=== PATIENT | female | born 1965 ===

== ENCOUNTER 2017-12-26 22:12 | Observation (INO) | payer OTHER ==
--- NOTE | 2017-12-26 23:03 | ED PDOC ---
Arrival/HPI - General Chief Complaint: Shortness Of Breath Time Seen by Provider: 12/26/17 22:32 Historian: Patient - History of Present Illness Narrative History of Present Illness (Text): 12/26/17 22:44 52 year old female, with past medical history of hypertension and diabetes mellitus, presents to the Emergency department complaining of a transient episode of chest tightness associated with mild shortness of breath earlier this evening. Patient states similar symptoms many years ago which resolved spontaneously. 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 Patient currently denies any chest pain or shortness of breath. Patient denies any fever, chills, nausea, vomiting , diarrhea, abdominal pain, cough or any other complaints. Patient denies smoking cigarettes but informs family history of cardiac disease. Time/Duration: 1-3 hours Symptom Onset: Gradual Symptom Course: Resolved Quality: Tightness Activities at Onset: Light Context: Home Past Medical History - Provider Review Nursing Documentation Reviewed: Yes - Reproductive Menopause: Yes Family/Social History - Physician Review Nursing Documentation Reviewed: Yes Family/Social History: No Known Family HX Allergies/Home Meds Allergies/Adverse Reactions: Allergies No Known Allergies Allergy (Verified 12/26/17 22:35) Home Medications: Home Meds Medication Instructions Recorded Confirmed Aspirin [Aspirin Chewable] 81 mg PO DAILY 12/26/17 12/27/17 Losartan [Cozaar] 25 mg PO DAILY 12/26/17 12/27/17 Metformin HCl [Glucophage] 1,000 mg PO BID 12/26/17 12/27/17 amLODIPine [Norvasc] 5 mg PO DAILY 12/26/17 12/27/17 Simvastatin [Zocor] 20 mg PO DAILY 12/27/17 12/27/17 Review of Systems - Physician Review All systems were reviewed & negative as marked: Yes - Review of Systems Constitutional: Normal. absent: Fevers Eyes: Normal ENT: Normal Respiratory: SOB. absent: Cough Cardiovascular: Chest Pain Gastrointestinal: Normal. absent: Abdominal Pain, Diarrhea, Nausea, Vomiting Genitourinary Female: Normal Musculoskeletal: Normal Skin: Normal Neurological: Normal Endocrine: Normal Hemo/Lymphatic: Normal Psychiatric: Normal Physical Exam Vital Signs Reviewed: Yes Vital Signs Temp Pulse Resp BP Pulse Ox 12/27/17 01:42 83 19 141/89 97 12/26/17 23:49 21 12/26/17 22:36 98.7 F 95 H 20 155/91 H 98 Temperature: Afebrile Blood Pressure: Hypertensive Pulse: Tachycardic Respiratory Rate: Normal Appearance: Positive for: Well-Appearing, Non-Toxic, Comfortable Pain Distress: None Mental Status: Positive for: Alert and Oriented X 3 - Systems Exam Head: Present: Atraumatic, Normocephalic Pupils: Present: PERRL Extroacular Muscles: Present: EOMI Conjunctiva: Present: Normal Mouth: Present: Moist Mucous Membranes Neck: Present: Normal Range of Motion Respiratory/Chest: Present: Clear to Auscultation, Good Air Exchange. No: Respiratory Distress, Accessory Muscle Use Cardiovascular: Present: Regular Rate and Rhythm, Normal S1, S2. No: Murmurs Abdomen: No: Tenderness, Distention, Peritoneal Signs Back: Present: Normal Inspection Upper Extremity: Present: Normal Inspection. No: Cyanosis, Edema Lower Extremity: Present: Normal Inspection. No: Edema, CALF TENDERNESS, Romaine' s Sign, Tenderness Neurological: Present: GCS=15, CN II-XII Intact, Speech Normal Skin: Present: Warm, Dry, Normal Color. No: Rashes Psychiatric: Present: Alert, Oriented x 3, Normal Insight, Normal Concentration Medical Decision Making ED Course and Treatment: 12/26/17 22:44 Impression: 52 year old female presents to the Emergency department complaining of transient episode of chest tightness associated with slight shortness of breath. Plan: -- EKG -- Labs -- Chest X-ray -- Reassess and disposition Prior Visits: Notes and results from previous visits were reviewed. Progress Notes: 12/27/17 00:57 Chest X-ray reviewed, shows no acute processes. 12/27/17 01:09 EKG: Ordered, reviewed, and independently interpreted the EKG. Rate : 75 BPM Rhythm : NSR Interpretation : No ST-segment elevations or depressions, no T-wave inversions, normal intervals. 12/27/17 02:[address] Ortega, who is aware and agrees with Emergency department management plan, accepts patient under her service. - Lab Interpretations Lab Results: 12/26/17 23:11 12/26/17 23:11 Lab Results 12/26/17 23:11: WBC 10.4, RBC 3.95, Hgb 11.8 L, Hct 34.9 L, MCV 88.4, MCH 29.9, MCHC 33.8, RDW 14.3, Plt Count 408, MPV 9.6 12/26/17 23:11: Sodium 141, Potassium 4.3, Chloride 102, Carbon Dioxide 27, Anion Gap 17, BUN 14, Creatinine 0.5 L, Est GFR ( Amer) > 60, Est GFR ( Non-Af Amer) > 60, Random Glucose 255 H, Calcium 9.8, Total Bilirubin 0.5, AST 30, ALT 34, Alkaline Phosphatase 67, Lactate Dehydrogenase 361, Total Creatine Kinase 40, Troponin I < 0.01, Total Protein 7.8, Albumin 4.2, Globulin 3.6, Albumin/Globulin Ratio 1.2 12/26/17 23:11: PT 11.9, INR 1.04, APTT 32.2 - RAD Interpretation Radiology Orders: 12/26/17 22:44 CHEST PORTABLE [RAD] Stat - Medication Orders Current Medication Orders: Discontinued Medications Albuterol/Ipratropium (Duoneb 3 Mg/0.5 Mg (3 Ml) Ud) 3 ml [facility]H [id number] Last Admin: 12/27/17 11:33 Dose: 3 ml Amlodipine Besylate (Norvasc) 5 mg PO DAILY [facility] Last Admin: 12/27/17 11:17 Dose: 5 mg MAR Pulse and Blood Pressure Document 12/27/17 11:17 [facility] (Rec: 12/27/17 11:17 [facility] [id number]) Pulse Pulse Rate (60-90) 97 Blood Pressure Blood Pressure (100/60-150/90) 128/78 Aspirin (Aspirin) 325 mg PO ONCE STA Stop: 12/27/17 02:17 Last Admin: 12/27/17 03:28 Dose: 325 mg Aspirin (Aspirin Chewable) 81 mg PO DAILY [facility] Last Admin: 12/27/17 11:17 Dose: 81 mg Atorvastatin Calcium (Lipitor) 10 mg PO DIN [facility] Last Admin: 12/27/17 17:48 Dose: 10 mg Enoxaparin Sodium (Lovenox) 40 mg SC DAILY [facility] PRN Reason: Protocol Last Admin: 12/27/17 15:19 Dose: 40 mg Subcutaneous Administrations Document 12/27/17 15:19 [facility] (Rec: 12/27/17 15:19 [facility] [id number]) Injection Site MAR Injection Site Right Abdomen Charges for Administration # of Subcutaneous Administrations 1 Famotidine (Pepcid) 40 mg PO HS [facility] Insulin Human Regular (Humulin R Low) 0 units SC ACHS [facility] PRN Reason: Protocol Last Admin: 12/27/17 17:51 Dose: Not Given Non-Admin Reason: Blood Sugar Parameter MAR Blood Glucose Document 12/27/17 17:51 [facility] (Rec: 12/27/17 17:51 [facility] [id number]) Blood Glucose Finger Stick Blood Glucose (70-120) 185 Losartan Potassium (Cozaar) 25 mg PO DAILY [facility] Last Admin: 12/27/17 11:16 Dose: 25 mg MAR Pulse and Blood Pressure Document 12/27/17 11:16 [facility] (Rec: 12/27/17 11:16 [facility] [id number]) Pulse Pulse Rate (60-90) 97 Blood Pressure Blood Pressure (100/60-150/90) 128/78 Metformin HCl (Glucophage) 1,000 mg PO BID [facility] Last Admin: 12/27/17 17:49 Dose: 1,000 mg Methylprednisolone (Solu-Medrol) 20 mg IVP Q12 [facility] Last Admin: 12/27/17 15:31 Dose: 20 mg IVP Administration Document 12/27/17 15:31 [facility] (Rec: 12/27/17 15:31 [id number] Charges for Administration # of IVP Administrations 1 Non-Formulary Medication (Simvastatin [Zocor]) 20 mg PO DAILY [facility] - Scribe Statement The provider has reviewed the documentation as recorded by the Scribe Seymour Don. All medical record entries made by the Ebenibnikolay were at my direction and personally dictated by me. I have reviewed the chart and agree that the record accurately reflects my personal performance of the history, physical exam, medical decision making, and the department course for this patient. I have also personally directed, reviewed, and agree with the discharge instructions and disposition. Disposition/Present on Arrival - Present on Arrival Any Indicators Present on Arrival: No History of DVT/PE: No History of Uncontrolled Diabetes: Yes Urinary Catheter: No History of Decub. Ulcer: No History Surgical Site Infection Following: None - Disposition Have Diagnosis and Disposition been Completed?: Yes Diagnosis: Chest pain Disposition: HOSPITALIZED Disposition Time: :17 Patient Plan: Observation Condition: STABLE
[2017-12-26 23:21] LABS: HEMOGLOBIN 11.8 g/dL (12.0-16.0); MEAN CELL VOLUME 88.4 fl (80.0-105.0); MEAN CORPUSCULAR HEMOGLOBIN 29.9 pg (25.0-35.0); MEAN CORPUSCULAR HGB CONC 33.8 g/dl (31.0-37.0); MEAN PLATELET VOLUME 9.6 fl (7.0-11.0); RBC 3.95 10^6/uL (3.5-6.1); RED CELL DISTRIBUTION WIDTH 14.3 % (11.5-14.5); WHITE BLOOD COUNT 10.4 10^3/ul (4.5-11.0)
[2017-12-26 23:32] LABS: ALB/GLOB RATIO 1.2 (1.1-1.8); ALBUMIN 4.2 g/dL (3.0-4.8); CALCIUM 9.8 mg/dL (8.4-10.5); GFR AFRICAN-AMERICAN > 60; GFR NON-AFRICAN AMERICAN > 60
[2017-12-26 23:38] LABS: ALT/SGPT 34 U/L (7-56); AST/SGOT 30 U/L (14-36); BLOOD UREA NITROGEN 14 mg/dL (7-21)
[2017-12-26 23:39] LABS: INR 1.04 (0.93-1.08); PARTIAL THROMBOPLASTIN TIME 32.2 Seconds (25.1-36.5); PROTHROMBIN TIME 11.9 SECONDS (9.4-12.5)
[2017-12-26 23:43] LABS: TROPONIN I < 0.01 ng/mL
[2017-12-27 03:55] VITALS: O2SAT 99
[2017-12-27 04:35] VITALS: BMI 51.3
[2017-12-27 07:15] LABS: TROPONIN I < 0.01 ng/mL
[2017-12-27] MEDS: Insulin Reg-LOW-Coverage SC SCH ×3 (08:37→17:51)
--- NOTE | 2017-12-27 08:56 | RAD ---
HISTORY: chest pain COMPARISON: No prior. FINDINGS: LUNGS: No active pulmonary disease. PLEURA: No significant pleural effusion identified, no pneumothorax apparent. CARDIOVASCULAR: Mild pulmonary vascular congestion difficult to exclude. There is underpenetration related to body habitus. Limited cardiomegaly not completely excluded. OSSEOUS STRUCTURES: No significant abnormalities. VISUALIZED UPPER ABDOMEN: Normal. OTHER FINDINGS: None. IMPRESSION: Limited cardiomegaly not completely excluded. Limited pulmonary vascular congestion also not definitively excluded though the study is underpenetrated due to body habitus. Clinically correlate further. No acute pulmonary disease bilaterally.
[2017-12-27] MEDS ORDERED: Non Formulary Medication (Simvastatin [Zocor] 20 MG) PO SCH (10:00)
[2017-12-27 10:37] LABS: HDL CHOLESTEROL 48 mg/dL (29-60)
[2017-12-27 10:48] LABS: LDL CHOLESTEROL 70 mg/dL (0-129)
[2017-12-27] MEDS ORDERED: Albuterol-Ipratrop 3 mg / 0.5 (3 ml) UD IH SCH (11:30)
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
--- NOTE | 2017-12-27 13:04 | CARD ---
APPROVED REPORT EKG Measurement Heart [id number] <Conclusion> Normal sinus rhythm Normal ECG
[2017-12-27 13:16] LABS: BASO # 0.07 K/mm3 (0.0-2.0); BASO % 0.7 % (0.0-3.0); EOS # 0.3 (0.0-0.7); EOS % 2.9 % (1.5-5.0); GRAN # 5.89 (1.4-6.5); GRAN % 57.2 % (50.0-68.0); HEMOGLOBIN 12.7 g/dL (12.0-16.0); LYMPH # 3.3 (1.2-3.4); LYMPH % 31.8 % (22.0-35.0); MEAN CELL VOLUME 88.8 fl (80.0-105.0); MEAN CORPUSCULAR HEMOGLOBIN 29.7 pg (25.0-35.0); MEAN CORPUSCULAR HGB CONC 33.4 g/dl (31.0-37.0); MONO # 0.8 (0.1-0.6); MONO % 7.4 % (1.0-6.0); RBC 4.28 10^6/uL (3.5-6.1); RED CELL DISTRIBUTION WIDTH 14.6 % (11.5-14.5); WHITE BLOOD COUNT 10.3 10^3/ul (4.5-11.0)
[2017-12-27 13:22] LABS: ALBUMIN 4.1 g/dL (3.0-4.8); ALT/SGPT 35 U/L (7-56); AST/SGOT 26 U/L (14-36); BLOOD UREA NITROGEN 11 mg/dL (7-21); CALCIUM 9.6 mg/dL (8.4-10.5); GFR AFRICAN-AMERICAN > 60; GFR NON-AFRICAN AMERICAN > 60
[2017-12-27] MEDS ORDERED: Enoxaparin 40 mg Syringe SC SCH (13:30)
[2017-12-27] MEDS ORDERED: MethylPREDNISolone 40 mg Vial IVP SCH (13:45)
--- NOTE | 2017-12-27 17:07 | CARD ---
APPROVED REPORT EXAM: Two-dimensional and M-mode echocardiogram with Doppler and color Doppler. INDICATION CVA/TIA 2D DIMENSIONS Left Atrium (2D)5.0 (1.6-4.0cm)IVSd1.2 (0.7-1.1cm) LVDd4.4 (3.9-5.9cm)PWd1.1 (0.7-1.1cm) LVDs2.9 (2.5-4.0cm)FS (%) 34.6 % LVEF (%)64.0 (>50%) M-Mode DIMENSIONS Aortic Root3.50 (2.2-3.7cm)Aortic Cusp Exc.1.90 (1.5-2.0cm) Aortic Valve AoV Peak Ihlwcgqc963.0cm/sAoV VTI49.2cmAO Peak GR.16mmHg LVOT Peak Yyvmvjtl544.0cm/sLVOT VTI35.20cmAO Mean GR.9mmHg Mitral Valve MV E Piwtmvso81.2cm/sMV A Pblqlhmm98.7cm/sE/A ratio1.0 TDI Lateral E' Peak V10.30cm/sMedial E' Peak V9.65cm/sE/Lateral E'9.5 E/Medial E'10.2 Pulmonary Valve PV Peak Avtkojgj85.3cm/sPV Peak Grad.3mmHg Tricuspid Valve TR Peak Svnbmkhm576yl/sRAP HZVGDNQF11tpGcIB Peak Gr.34mmHg [id number] LEFT VENTRICLE The left ventricle is normal size. There is normal left ventricular wall thickness. The left ventricular function is normal.EF-65% There is normal LV segmental wall motion. Transmitral Doppler flow pattern is Grade III-reversible restrictive diastolic dysfunction. No left ventricle thrombus noted on this study. There is no ventricular septal defect visualized. There is no left ventricular aneurysm. There is no mass noted in the left ventricle. RIGHT VENTRICLE The right ventricle is normal size. There is normal right ventricular wall thickness. The right ventricular systolic function is normal. ATRIA The left atrium is mildly dilated. The right atrium size is normal. The interatrial septum is intact with no evidence for an atrial septal defect. AORTIC VALVE The aortic valve is mildly thickened but opens well. No aortic regurgitation is present. There is no aortic valvular stenosis. There is no aortic valvular vegetation. MITRAL VALVE The mitral valve is thickened but opens well. Mitral regurgitation is trace. There is no mitral valve stenosis. There is no evidence of mitral valve prolapse. TRICUSPID VALVE The tricuspid valve leaflets are thickened , but open well. There is mild tricuspid regurgitation.RVSP-44 mmof hg. There is no tricuspid valve stenosis. There is no tricuspid valve prolapse or vegetation. PULMONIC VALVE The pulmonary valve is normal in structure. There is trace pulmonic valvular regurgitation. There is no pulmonic valvular stenosis. GREAT VESSELS The aortic root is normal in size. The ascending aorta is normal in size. The pulmonary artery is normal. The IVC is normal in size and collapses >50% with inspiration. PERICARDIAL EFFUSION There is no pleural effusion. There is no pericardial effusion. <Conclusion> The left ventricle is normal size. There is normal left ventricular wall thickness. The left ventricular function is normal.EF-65% Mitral regurgitation is trace. There is mild tricuspid regurgitation.RVSP-44 mmof hg. The IVC is normal in size and collapses >50% with inspiration. There is no pericardial effusion.
[2017-12-27 18:09] VITALS: BP 126/80; PULSE 65; RESP 20; TEMP 97.7
--- NOTE | 2017-12-27 19:25 | CP.PCM.DIS ---
<Aggie Samson - Last Filed: 12/27/17 19:22> Provider - Provider Date of Admission: 12/27/17 02:17 Attending physician: Fabio Quigley MD Primary care physician: NO PRIMARY CARE PROVIDER Consults: Dr. Mesa/Ludwig Time Spent in preparation of Discharge (in minutes): 35 Hospital Course - Lab Results Lab Results: Most Recent Lab Values WBC 10.3 10^3/ul (4.5-11.0) 12/27/17 11:00 RBC 4.28 10^6/uL (3.5-6.1) 12/27/17 11:00 Hgb 12.7 g/dL (12.0-16.0) 12/27/17 11:00 Hct 38.0 % (36.0-48.0) 12/27/17 11:00 MCV 88.8 fl (80.0-105.0) 12/27/17 11:00 MCH 29.7 pg (25.0-35.0) 12/27/17 11:00 MCHC 33.4 g/dl (31.0-37.0) 12/27/17 11:00 RDW 14.6 % (11.5-14.5) H 12/27/17 11:00 Plt Count 422 10^3/uL (120.0-450.0) 12/27/17 11:00 MPV 10.0 fl (7.0-11.0) 12/27/17 11:00 Gran % 57.2 % (50.0-68.0) 12/27/17 11:00 Lymph % (Auto) 31.8 % (22.0-35.0) 12/27/17 11:00 [place] % (Auto) 7.4 % (1.0-6.0) H 12/27/17 11:00 Eos % (Auto) 2.9 % (1.5-5.0) 12/27/17 11:00 Baso % (Auto) 0.7 % (0.0-3.0) 12/27/17 11:00 Gran # 5.89 (1.4-6.5) 12/27/17 11:00 Lymph # (Auto) 3.3 (1.2-3.4) 12/27/17 11:00 [place] # (Auto) 0.8 (0.1-0.6) H 12/27/17 11:00 Eos # (Auto) 0.3 (0.0-0.7) 12/27/17 11:00 Baso # (Auto) 0.07 K/mm3 (0.0-2.0) 12/27/17 11:00 PT 11.9 SECONDS (9.4-12.5) 12/26/17 23:11 INR 1.04 (0.93-1.08) 12/26/17 23:11 APTT 32.2 Seconds (25.1-36.5) 12/26/17 23:11 Sodium 141 mmol/L (132-148) 12/27/17 11:00 Potassium 4.2 mmol/L (3.6-5.0) 12/27/17 11:00 Chloride 101 mmol/L (98-107) 12/27/17 11:00 Carbon Dioxide 28 mmol/L (21-33) 12/27/17 11:00 Anion Gap 16 (10-20) 12/27/17 11:00 BUN 11 mg/dL (7-21) 12/27/17 11:00 Creatinine 0.5 mg/dl (0.7-1.2) L 12/27/17 11:00 Est GFR ( Amer) > 60 12/27/17 11:00 Est GFR (Non-Af Amer) > 60 12/27/17 11:00 POC Glucose (mg/dL) 146 mg/dL (65-110) H 12/27/17 07:45 Random Glucose 180 mg/dL (70-110) H 12/27/17 11:00 Hemoglobin A1c 8.1 % (4.2-6.5) H 12/27/17 11:00 Calcium 9.6 mg/dL (8.4-10.5) 12/27/17 11:00 Total Bilirubin 0.6 mg/dL (0.2-1.3) 12/27/17 11:00 AST 26 U/L (14-36) 12/27/17 11:00 ALT 35 U/L (7-56) 12/27/17 11:00 Alkaline Phosphatase 81 U/L (38-126) 12/27/17 11:00 Lactate Dehydrogenase 251 U/L (333-699) L 12/27/17 06:30 Total Creatine Kinase 36 U/L (35-230) 12/27/17 06:30 Troponin I < 0.01 ng/mL 12/27/17 11:00 Total Protein 8.2 g/dL (5.8-8.3) 12/27/17 11:00 Albumin 4.1 g/dL (3.0-4.8) 12/27/17 11:00 Globulin 4.1 gm/dL 12/27/17 11:00 Albumin/Globulin Ratio 1.0 (1.1-1.8) L 12/27/17 11:00 Triglycerides 116 mg/dL (35-160) 12/27/17 10:28 Cholesterol 154 mg/dL (130-200) 12/27/17 10:28 LDL Cholesterol Direct 70 mg/dL (0-129) 12/27/17 10:28 HDL Cholesterol 48 mg/dL (29-60) 12/27/17 10:28 TSH 3rd Generation 0.62 mIU/mL (0.46-4.68) 12/27/17 11:00 - Hospital Course Hospital Course: 52 year old female with a past medical history of hypertension, DM II, asthma as a child, carpal tunnel syndrome (s/p carpal tunnel release surgery in 2007) who presents with one week of a dry cough, some shortness of breath, and wheezing after she left the window open during a nights's rest. She is visiting from [place] and is accompanied by her niece who acts as the turner in. The patient had been using her Niece's nebulized albuterol treatments at home and liquid Robituusin for her symptoms without improvement. At the time of my examination she is not an acute respiratory distress, but on exam she is wheezing. EKG and troponins have been negative x 3. She denies any fever, chills , sputum production, muscle or joint aches, chest pain,, palpitations, nausea, or vomiting. She does not use a maintenance inhaler for her last episode of bronchitis was 8 years ago. She has never been intubated for an asthma attack or bronchitis and denies any difficulty breathing post-operatively. Review of system is positive for cough, wheezing, shortness of breath. Negative for rhinorrhea, otalgia, fever, sputum production, exertional dyspnea, PND, or lower extremity swelling. The patient was treated with duonebs q4h scheduled and IV solumedrol with improvement in her wheezing and dyspnea.Cardiology was consulted and ordered an echocardiogram which read as follows The left ventricle is normal sized. There is normal left and took a wall thickness. Left ventricular function is normal with an estimated EF 65%. Mitral regurgitation a trace. There is mild tricuspid regurgitation. Right ventricular systolic pressure is 44 mmHg. Theres no pericardial effusion. Furthermore, troponins were negative times three and EKG showed no ST elevations or depressions concerning for ischemia. The patient was discharged with an albuterol inhaler, medrol dose meg, and the below written instructions and recommendations. 1. Follow up with PMD in [place]. 2. Follow up with outpatient stress test on 01/11/[address] Mesa. - Date & Time of H&P Date of H&P: 12/27/17 Time of H&P: 19:29 Discharge Exam - Head Exam Head Exam: ATRAUMATIC, NORMOCEPHALIC - Eye Exam Eye Exam: EOMI, Normal appearance - ENT Exam ENT Exam: Mucous Membranes Moist - Neck Exam Neck exam: Normal Inspection - Respiratory Exam Respiratory Exam: Clear to PA & Lateral, NORMAL BREATHING PATTERN - Cardiovascular Exam Cardiovascular Exam: RRR, +S1, +S2 - Extremities Exam Extremities exam: normal inspection - Neurological Exam Neurological exam: Alert, CN II-XII Intact, Oriented x3 - Psychiatric Exam Psychiatric exam: Normal Affect, Normal Mood - Skin Skin Exam: Dry, Intact, Normal Color, Warm Discharge Plan - Discharge Medications Prescriptions: Albuterol HFA [Ventolin HFA 90 mcg/actuation (8 g)] 1 puff IH Q12 #1 inhaler Methylprednisolone [Medrol Dose Pack (21 tabs)] 4 mg PO DAILY #21 mg - Follow Up Plan Condition: STABLE Disposition: HOME/ ROUTINE Instructions: Asthma Action Plan, Asthma (DC), Asthma (GEN) Additional Instructions: 1. Follow up with PMD in [place]. 2. Follow up with outpatient stress test on 01/11/[address] Mesa. Referrals: PCP,NO [Primary Care Provider] - <Fabio Quigley - Last Filed: 12/28/17 18:46> Provider - Provider Date of Admission: 06/27/18 02:17 Attending physician: Fabio Quigley MD Primary care physician: NO PRIMARY CARE PROVIDER Hospital Course - Lab Results Lab Results: Most Recent Lab Values WBC 10.3 10^3/ul (4.5-11.0) 12/27/17 11:00 RBC 4.28 10^6/uL (3.5-6.1) 12/27/17 11:00 Hgb 12.7 g/dL (12.0-16.0) 12/27/17 11:00 Hct 38.0 % (36.0-48.0) 12/27/17 11:00 MCV 88.8 fl (80.0-105.0) 12/27/17 11:00 MCH 29.7 pg (25.0-35.0) 12/27/17 11:00 MCHC 33.4 g/dl (31.0-37.0) 12/27/17 11:00 RDW 14.6 % (11.5-14.5) H 12/27/17 11:00 Plt Count 422 10^3/uL (120.0-450.0) 12/27/17 11:00 MPV 10.0 fl (7.0-11.0) 12/27/17 11:00 Gran % 57.2 % (50.0-68.0) 12/27/17 11:00 Lymph % (Auto) 31.8 % (22.0-35.0) 12/27/17 11:00 [place] % (Auto) 7.4 % (1.0-6.0) H 12/27/17 11:00 Eos % (Auto) 2.9 % (1.5-5.0) 12/27/17 11:00 Baso % (Auto) 0.7 % (0.0-3.0) 12/27/17 11:00 Gran # 5.89 (1.4-6.5) 12/27/17 11:00 Lymph # (Auto) 3.3 (1.2-3.4) 12/27/17 11:00 [place] # (Auto) 0.8 (0.1-0.6) H 12/27/17 11:00 Eos # (Auto) 0.3 (0.0-0.7) 12/27/17 11:00 Baso # (Auto) 0.07 K/mm3 (0.0-2.0) 12/27/17 11:00 PT 11.9 SECONDS (9.4-12.5) 12/26/17 23:11 INR 1.04 (0.93-1.08) 12/26/17 23:11 APTT 32.2 Seconds (25.1-36.5) 12/26/17 23:11 Sodium 141 mmol/L (132-148) 12/27/17 11:00 Potassium 4.2 mmol/L (3.6-5.0) 12/27/17 11:00 Chloride 101 mmol/L (98-107) 12/27/17 11:00 Carbon Dioxide 28 mmol/L (21-33) 12/27/17 11:00 Anion Gap 16 (10-20) 12/27/17 11:00 BUN 11 mg/dL (7-21) 12/27/17 11:00 Creatinine 0.5 mg/dl (0.7-1.2) L 12/27/17 11:00 Est GFR ( Amer) > 60 12/27/17 11:00 Est GFR (Non-Af Amer) > 60 12/27/17 11:00 POC Glucose (mg/dL) 185 mg/dL (65-110) H 12/27/17 16:25 Random Glucose 180 mg/dL (70-110) H 12/27/17 11:00 Hemoglobin A1c 8.1 % (4.2-6.5) H 12/27/17 11:00 Calcium 9.6 mg/dL (8.4-10.5) 12/27/17 11:00 Total Bilirubin 0.6 mg/dL (0.2-1.3) 12/27/17 11:00 AST 26 U/L (14-36) 12/27/17 11:00 ALT 35 U/L (7-56) 12/27/17 11:00 Alkaline Phosphatase 81 U/L (38-126) 12/27/17 11:00 Lactate Dehydrogenase 251 U/L (333-699) L 12/27/17 06:30 Total Creatine Kinase 36 U/L (35-230) 12/27/17 06:30 Troponin I < 0.01 ng/mL 12/27/17 11:00 Total Protein 8.2 g/dL (5.8-8.3) 12/27/17 11:00 Albumin 4.1 g/dL (3.0-4.8) 12/27/17 11:00 Globulin 4.1 gm/dL 12/27/17 11:00 Albumin/Globulin Ratio 1.0 (1.1-1.8) L 12/27/17 11:00 Triglycerides 116 mg/dL (35-160) 12/27/17 10:28 Cholesterol 154 mg/dL (130-200) 12/27/17 10:28 LDL Cholesterol Direct 70 mg/dL (0-129) 12/27/17 10:28 HDL Cholesterol 48 mg/dL (29-60) 12/27/17 10:28 TSH 3rd Generation 0.62 mIU/mL (0.46-4.68) 12/27/17 11:00 Attending/Attestation - Attestation I have personally seen and examined this patient.: Yes I have fully participated in the care of the patient.: Yes I have reviewed all pertinent clinical information, including history, physical exam and plan: Yes Notes (Text): 12/28/17 18:44 Attending note ; Patient seen and examined with resident. Patient is a 52 year old female with a past medical history of hypertension, DM II, asthma , obesity, carpal tunnel syndrome (s/p carpal tunnel release surgery in 2007) who presents with one week of a dry cough, some shortness of breath. Patient have some pleuritic chest pain. EKG without acute ST-T changes. Cardiac enzymes negative. Cardiology evaluation appreciated. Outpatient stress planned. Echocardiogram done and results pending. Chest x-ray showed mild cardiomegaly and vascular congestion. Asthma exacerbation; continue DuoNeb. Started on IV Solu-Medrol. We'll be discharged home with albuterol inhaler and Medrol Dosepak. Hypertension; continue home meds. Diabetes; continue regular insulin sliding scale and metformin. Obesity; diet, exercise and weight reduction advised. Will follow-up with cardiology. Patient is visiting from [place]. Upon discharge the patient will follow-up with her PMD in [facility]. 12/28/17 18:45
--- NOTE | 2017-12-28 06:16 | CON ---
DATE: 12/27/2017 REASON FOR CONSULTATION: Cardiac evaluation, admitted with asthma, shortness of breath. BRIEF CLINICAL HISTORY: This is a 52-year-old obese female with past medical history of diabetes, hypertension, hyperlipidemia. Came in with complaint of shortness of breath and exacerbation of asthma. Denies any episode of chest pain. Denies any palpitation. Though ER physician mentioned the patient had transient chest pain, but the patient denies to me. The daughter is at the bedside. PAST MEDICAL HISTORY: Past history significant for diabetes, hypertension, hyperlipidemia and obesity. SOCIAL HISTORY: Denies any smoking. Denies any history of alcohol abuse. PAST SURGICAL HISTORY: Significant for multiple surgery for left wrist for carpal tunnel, left knee for meniscus tear. FAMILY HISTORY: No history of coronary artery disease. CURRENT MEDICATIONS: The patient is taking at home amlodipine 5 mg, metformin 1 g twice a day, simvastatin 20 mg daily, losartan 25 mg, aspirin 81 mg daily. REVIEW OF SYSTEMS: As per HPI. PHYSICAL EXAMINATION: VITAL SIGNS: Temperature afebrile, heart rate 62, blood pressure 147/87. HEENT: PERRLA. Extraocular muscles intact. NECK: Supple. No carotid bruit. No thyromegaly. CHEST: Clear to auscultation. HEART: S1 and S2 regular. ABDOMEN: Soft. EXTREMITIES: Clubbing and cyanosis negative. LABORATORY DATA: Blood workup as follows, WBC 10.4, hemoglobin 11.8, hematocrit 34.9, platelet count 408. Chemistry shows sodium 141, potassium 4.8, chloride 102, carbon dioxide 27, anion gap of 17, BUN 14, creatinine 0.5. Troponin 0.01 x2 negative. EKG shows normal sinus rhythm. No acute ST-T changes noted. IMPRESSION: A 52-year-old morbidly obese female, body mass index 51 kg, brought with diabetes, hypertension, hyperlipidemia, admitted with atypical chest pain; so far troponin negative; history of asthma and complaint of asthma exacerbation. RECOMMENDATION: We will get lipid profile add on. We will get thyroid and hemoglobin A1c. We will order echo and schedule stress test as outpatient. The patient has been scheduled stress test. Paper given to Cardiology and we will order stress test for risk stratification. We will follow with you. If the patient stays, then we will do stress test tomorrow; otherwise, we will do it as outpatient. We will discontinue telemetry. Thank you, Dr. Ortega for providing us the opportunity in taking care of the patient, Marisol Bowser. Linda Munroe MD
== END 2017-12-27 19:06 | disposition home or self-care (01) ==
LOC: ED 22:12 → ERH 12-27 02:17 → 2RNO 12-27 04:11
PROVIDERS: ADMIT Internal Medicine; ATTEND Internal Medicine
DX: J45.901 Unspecified asthma with (acute) exacerbation (principal); I10 Essential (primary) hypertension; E11.9 Type 2 diabetes mellitus without complications; E78.5 Hyperlipidemia, unspecified; E66.01 Morbid (severe) obesity due to excess calories; Z68.43 Body mass index [BMI] 50.0-59.9, adult
CPT/HCPCS: 36415; 71045; 80053; 80061; 82550; 82948; 83036; 83615; 84443; 84484; 85025; 85027; 85610; 85730; 93005; 93306; 94640; 96372; 96374; 99285; G0378; J1650; J2920